=== PATIENT | male | born 1975 | race Caucasian/White ===

== ENCOUNTER 2019-09-09 07:35 | Day surgery (SDC) | payer BC ==
[2019-09-09] MEDS ORDERED: Ringers Lactate 1,000 ML IV ONE (07:47)
[2019-09-09] MEDS ORDERED: LIDOCAINE 1% MPF 5 ML VIAL ONE (08:27)
[2019-09-09] MEDS ORDERED: propofoL 200 MG/20 ML VIAL IV ONE (08:27)
[2019-09-09] MEDS ORDERED: MIDAZOLAM HCL 2 MG/2 ML INJ ONE (08:28)
--- NOTE | 2019-09-09 08:54 | ENDO RPT ---
[address], [address] COLONOSCOPY PROCEDURE REPORT EXAM DATE: 09/09/2019 PATIENT NAME: Ned Abbott MR #: [id number] BIRTHDATE: 1975 ATTENDING: Derek Bell DR STATUS: outpatient TRACTOR TRAILER MECHANIC: Dolores Johnson RN and Stiven Freeman INDICATIONS: The patient is a 44 yr old Male here for a colonoscopy due to colon cancer screening PROCEDURE PERFORMED: Colonoscopy with biopsy - cold polypectomy MEDICATIONS: Per Anesthesia. ESTIMATED BLOOD LOSS: None CONSENT: The patient understands the risks and benefits of the procedure and understands that these risks include, but are not limited to: sedation, allergic reaction, infection, perforation and/or bleeding. Alternative means of evaluation and treatment include, among others: physical exam, x-rays, and/or surgical intervention. The patient elects to proceed with this endoscopic procedure. DESCRIPTION OF PROCEDURE: During intra-op preparation period all mechanical medical equipment was checked for proper function. Hand hygiene and appropriate measures for infection prevention was taken. Procedure, possible complications, alternatives including, but not limited to possibility of bleeding, perforation, tear, infection, sepsis, need for surgery, need for blood transfusion, were explained to the patient. After the risks, benefits and alternatives of the procedure were thoroughly explained, Informed consent was verified, confirmed and timeout was successfully executed by the treatment team. The patient was placed in the left lateral position. A digital rectal exam was performed and revealed internal hemorrhoids. After appropriate level of anesthesia, the scope was passed. The EC-[id number] ([id number]) endoscope was introduced through the anus and advanced to the cecum, which was identified by both the appendix and ileocecal valve. The quality of the prep was fair. The instrument was then slowly withdrawn as the colon was fully examined. Scope withdrawal time was 8 minutes. COLON FINDINGS: Small internal hemorrhoids were found. Three small smooth sessile polyps were found in the left colon and sigmoid colon. A polypectomy was performed with cold forceps. The resection was complete, the polyp tissue was completely retrieved and sent to histology. Retroflexed views revealed no abnormalities. The scope was then completely withdrawn from the patient and the procedure terminated. ADVERSE EVENTS: There were no complications. IMPRESSIONS: 1. Small internal hemorrhoids 2. Three small sessile polyps were found in the left colon and sigmoid colon; polypectomy was performed with cold forceps RECOMMENDATIONS: 1. avoid NSAIDS for 2 weeks 2. await biopsy results 3. fiber rich diet 4. follow-up: office 2 week(s) 5. Monitor for any evidence of rectal bleeding. 6. yearly hemoccult starting in 4 years 7. hemorrhoidal hygiene RECALL: for Colonoscopy, pending biopsy results. Derek Bell DR eSigned: Derek Bell DR 09/09/2019 8:53 AM cc: CPT CODES: ICD9 CODES: PATIENT NAME: Ned Abbott MR#: [id number]
[2019-09-09 09:17] VITALS: TEMP 96.9; O2SAT 96
[2019-09-09 09:20] VITALS: BP 133/96
== END 2019-09-09 09:34 | disposition home or self-care (01) ==
LOC: OR 07:35
PROVIDERS: ATTEND Surgery
PROC: 0DBN8ZX Excision of Sigmoid Colon, Via Natural or Artificial Opening Endoscopic, Diagnostic (ICD-10-PCS; 2019-09-09)
PROC: 0DBG8ZX Excision of Left Large Intestine, Via Natural or Artificial Opening Endoscopic, Diagnostic (ICD-10-PCS; principal; 2019-09-09 08:30)
DX: Z12.11 Encounter for screening for malignant neoplasm of colon (principal); K63.5 Polyp of colon; D12.4 Benign neoplasm of descending colon; D12.5 Benign neoplasm of sigmoid colon; K64.8 Other hemorrhoids; Z88.0 Allergy status to penicillin
CPT/HCPCS: 88305 ×2; 45380; J2704; J2250; J7120

== ENCOUNTER 2019-09-28 07:33 | Day surgery (SDC) | payer BC ==
[~2019-09-28 07:33] MED LIST: BUPIVACA 0.5%/EPI 0.0005%/PF 30 ML VIAL ONE
[2019-09-28] MEDS ORDERED: LIDOCAINE 2% MPF 5 ML VIAL ONE (07:56)
[2019-09-28] MEDS ORDERED: dexAMETHasone 10 MG/ML VIAL ONE (07:56)
[2019-09-28] MEDS ORDERED: propofoL 200 MG/20 ML VIAL IV ONE (07:56)
[2019-09-28] MEDS ORDERED: FENTANYL CITR 250 MCG/5 ML ONE (07:56)
[2019-09-28] MEDS ORDERED: MIDAZOLAM HCL 2 MG/2 ML INJ ONE (07:57)
[2019-09-28] MEDS ORDERED: ROCURONIUM 50 MG/5 ML VIAL IV ONE (07:57)
[2019-09-28] MEDS ORDERED: LABETALOL 20 MG/4ML SYRINGE IV ONE (08:57)
[2019-09-28] MEDS ORDERED: VANCOMYCIN/NS 1 gm 1 GM/250 ML BAG IV ONE (09:00)
[2019-09-28] MEDS ORDERED: EPHEDRINE SULF 50 MG/ML VIAL ONE (09:03)
[2019-09-28] MEDS ORDERED: Ringers Lactate 1,000 ML IV ONE (09:32)
[2019-09-28] MEDS ORDERED: KETOROLAC 30 MG/ML INJ ONE (09:42)
--- NOTE | 2019-09-28 09:45 | P.OP ---
Preoperative diagnosis: Umbilical Hernia Postoperative diagnosis: Umbilical Hernia Primary procedure: Laparoscopic Umbilical Hernia Repair with Mesh Secondary procedure: Laparoscopic adhesiolysis Anesthesia: GETA + Local Estimated blood loss: <5cc Specimen: none Findings: Persistent umbical vessels Complications: None Implants: 4.5" bard ventralite ST mesh with echo position Transferred to: Recovery Room Condition: Good
[2019-09-28] MEDS: HYDROMORPHONE HCL 1 MG/ML INJ ONE ×3 (10:03→10:16)
[2019-09-28] MEDS ORDERED: ONDANSETRON 4 MG/2 ML VIAL ONE (10:04)
[2019-09-28] MEDS ORDERED: HYDROMORPHONE HCL 1 MG/ML INJ ONE (10:20)
[2019-09-28 10:48] VITALS: BP 136/78; TEMP 97.6; O2SAT 92
[2019-09-28] MEDS ORDERED: HYDROCODONE/APAP 5/325 MG TAB ONE (11:04)
--- NOTE | 2019-09-28 21:10 | OP ---
Date of Procedure: 09/28/2019 Surgeon: Derek Bell MD, Preoperative Diagnosis: Umbilical hernia. Postoperative Diagnosis: Umbilical hernia. Procedure Performed: Laparoscopic inguinal hernia repair with mesh. Secondary Procedure: Laparoscopic adhesiolysis. Anesthesia: General endotracheal plus local with 0.5% Marcaine with epinephrine. Estimated Blood Loss: Less than 5 mL. Specimens: None. Findings: 1.Umbilical hernia defect of approximately 2 cm. 2.Persistent bilateral umbilical vessels. Complications: None. Implants: 4.[address] mesh with Echo Positioning System, transferred to [facility] in good condition. Procedure In Detail: After informed consent was obtained, patient was brought to the operating room, prepped and draped in the usual sterile fashion. After adequate anesthesia was achieved, an area of the left lower quadrant was anesthetized appropriately, sharply incised. A 5-mm trocar was introduc ed in the abdomen easily without evidence of complication. Insufflation was obtained to 15 mmHg at t his time. The area was inspected. There was no injury to vital structures upon entry to the abdomen . Additional trocar site was chosen in the right lower quadrant. This was similarly anesthetized an d sharply incised. A 5-mm trocar was introduced in the abdomen without evidence of complication. Th e left lower quadrant trocar was then up-sized to a 12 mm under direct visualization without evidence of complication. Using the LigaSure device, then took down an umbilical hernia with abdominal juana nts down and returned to the normal anatomic position quite easily. At this point, I inspected the a mynor and found that there were 2 persistent umbilical vessels emanating from inferiorly to the umbilic us consistent with a persistent non-obliterated umbilical vasculature, likely arterial in origin. Th seng were taken down using the LigaSure device with good hemostasis without evidence of complication t o allow for clearance of a 4.5 inch round Bard [address]ight ST mesh. The mesh was then brought into t he field after appropriately positioning it using the Echo Positioning System through the inferior ed ge of the umbilicus. The mesh was then deployed and secured to the abdominal wall using absorbable f ixation tacks circumferentially in double crown type fashion and secured to the abdominal wall withou t evidence of complication. The mesh was in good approximation and apposition to the tissue. The ab domen was then inspected, proper hemostasis was achieved without any additional hemostatic maneuvers. I then positioned the patient right side down and removed the left lateral trocar and closed the si te with a Parish-Jane suture passer with 0 Vicryl in interrupted fashion. Good approximation of the tissues. I then completed desufflated the abdomen under direct visualization without evidence of complication and removed all remaining trocars, irrigated the skin and closed the incisions with 4-0 Monocryl in a running fashion. Dermabond placed over top. Patient tolerated procedure well without evidence of complication and transferred to PACU in good condition. All counts were correct at the end of the case. YELENA/ZACH Voice ID: [id number] Report ID: [id number]
== END 2019-09-28 11:39 | disposition home or self-care (01) ==
LOC: OR 07:33
PROVIDERS: ATTEND Surgery
PROC: 0WUF4JZ Supplement Abdominal Wall with Synthetic Substitute, Percutaneous Endoscopic Approach (ICD-10-PCS; principal; 2019-09-28 08:30)
DX: K42.9 Umbilical hernia without obstruction or gangrene (principal); I10 Essential (primary) hypertension; K21.9 Gastro-esophageal reflux disease without esophagitis; J45.909 Unspecified asthma, uncomplicated
CPT/HCPCS: 49652; J2704; J2250; J3010; J1100; J1170 ×2; J3370; J7120; J2405; C1781